=== PATIENT | female | born 1950 | race Caucasian/White ===

== ENCOUNTER 2023-10-21 16:00 | Outpatient (CLI) | payer MEDICARE | END 2023-10-21 16:01 | disposition home or self-care (01) | LOC: SLEEPLAB 16:00 | PROVIDERS: ATTEND Internal Medicine | DX: G47.33 Obstructive sleep apnea (adult) (pediatric) (principal); I10 Essential (primary) hypertension; E66.9 Obesity, unspecified; I51.89 Other ill-defined heart diseases; R06.83 Snoring; R35.1 Nocturia | CPT/HCPCS: 95800 ==